=== PATIENT | female | born 2000 | race Caucasian/White ===

== ENCOUNTER → 2022-08-10 08:16 | Outpatient (BNVA) | payer OTHER, SELFPAY | PROVIDERS: PCP Internal Medicine; Visit Provider Nurse Practitioner Family | DX: G43.009 Migraine without aura, not intractable, without status migrainosus (principal); G47.9 Sleep disorder, unspecified | CPT/HCPCS: 99202 ==

== ENCOUNTER 2023-03-09 13:19 | Outpatient (AMB) | payer OTHER, SELFPAY ==
--- NOTE | 2023-03-09 13:41 | MHC.OFFVIS ---
Intake Vital Signs 03/09/23 13:44 Height 4 ft 10 in Weight 117 lb BMI 24.5 Intake Visit Reasons: f/u appt for Migraines-Confirmed Intake Note: Patient presents for follow up migraines Allergies amoxicillin Allergy (Unknown, Verified 03/09/23 13:45) Unknown Penicillins Allergy (Unknown, Verified 03/09/23 13:45) Unknown Medication List - Last Reconciled 03/09/23 by ASIM Byrd-e.estradiol-iron 1 mg-20 mcg (24)/75 mg (4) (Tracy 24 Fe) 1 tab PO DAILY ondansetron HCl 4 mg PO Q8H PRN riboflavin (vitamin B2) 400 mg PO DAILY 30 days sumatriptan succinate 50 - 100 mg orally at onset of headache, may repeat in 2 hrs PRN; max 2 tabs per day or 4 tabs/week (may take with Ibuprofen/Naproxen) 30 days sumatriptan succinate 6 mg (0.5 mL) subcut ONCE PRN 30 days ubrogepant (Ubrelvy) 50 - 100 mg (0.5 - 1 x 100 mg) PO ONCE PRN 30 days HPI HPI Comments History of Present Illness Details 22-yr-old female presents for f/u visit. Pt endorses the following interval medical history changes: She had Covid-19 a few weeks ago, which was mild self-limited. She is having less migraine attacks, but when she has an attack it is more severe. Last night, had to leave work d/t a migraine. She did not receive Ajovy or Riboflavin. The Sumatriptan tabs did not help. She did try the Sumatriptan inj- dd not see any real effect, but doing the inj did make her quite anxious. Ubrelvy and Zofran are still usually helpful. Baseline headache characteristics: Severe, Throbbing, aching, pulsating headache, starts above right eye moves over the left side of head and into the right neck (Rarely left sided) a/w Blurry vision, Photophobia, phonophobia, osmophobia, allodynia, nausea, sometimes vomiting, not right in space dizziness/weakness, tiredness, Bilateral fingertip tingling. Postdrome a/w Sometimes blurry vision. Sometimes has more energy. Usually upon awakening or may wake her up. Duration 2 hrs-5hrs- rarely 1-2 days. Current number of typical migraine days per month: 2 per week Average painfulness of these migraines: Mod to Severe Current number of non-migraine headache days per month: None Average painfulness of these headaches: n/a Current number of days of acute medication use per month: 2 x's per week Previous number of migraine days per month prior to starting current preventive tx: 2-3 x's per week PFSH Medical History (Updated 03/09/23 @ 14:43 by ASIM Bydr) COVID-19 Anxiety Depression Family History Father Hypercholesteremia Hypertension Maternal Grandfather Diabetes Skin cancer Family/Other Breast cancer Mother Asthma Arthritis Brother Hypertension Social History Alcohol intake: current Alcohol intake frequency: a few times a month Patient Tobacco Use Status: Never used Tobacco Physical Exam Vital Signs: BMI result Body Mass Index 24.5 Const General: cooperative and no acute distress Orientation/consciousness: patient oriented x3 Resp Effort & Inspection: normal respiratory effort and able to speak in complete sentences Neuro General: patient oriented x3 Cranial nerves: Yes CN's II-XII intact bilaterally Cognition (Neuro): normal cognition Psych Appearance: grossly normal Mental Status: mental status grossly normal Speech and movement: Normal speech and movement present Affect: normal affect Attitude: cooperative Assessment & Plan Assessment & Plan (1) Migraine without aura: Code(s): G43.009 - Migraine without aura, not intractable, without status migrainosus (2) Sleep difficulties: Code(s): G47.9 - Sleep disorder, unspecified (3) Nausea: Code(s): R11.0 - Nausea Plan For overall headache management: Continue to optimize good self-care, including but not limited to maintaining a healthy diet, adequate fluid intake, adequate sleep, and engaging in regular physical activity. Track headaches. Pt may benefit from reading Say Alfred to Insomnia by Dr Isaias Adams or similar CBTi resources. ? For acute headache treatment: Continue Ubrelvy 100mg at onset of migraine, may repeat in 2 hrs (max 200mg/day). May adjunct w/ Sumatriptan and/or Ibuporfen/Naproxen. Stop Sumatriptan 100mg tab- ineffective. Stop Sumatriptan 6mg sc- ineffective. Continue Zofran 4-8mg prn. Previous acute migraine medication trials: [id number]- worked but lost efficacy. Sumatriptan 100mg tab- ineffective. Sumatriptan 6mg sc- ineffective.Rizatriptan 10mg- stopped working. Zolmitriptan- ineffective. Naratriptan- not effective. Has not tried Nurtec. Acute migraine medication contraindications: None at this time. ? For headache prevention medication: Discussed that preventative medications should be taken routinely as prescribed for best effect, it may take several weeks for full effect to take effect. Will reorder Riboflavin 400mg qam Will f/u on order for Ajovy 225mg sc q month. Reviewed potential adverse effects of Ajovy/Emgality, including but not limited to injection site reactions. Previous migraine prevention medication trials: Depakote- ineffective. Topiramate- ineffective. Propranolol- ineffective. Amitriptyline- ineffective. Magensium- ineffective. Migraine prevention medication contraindications: None at this time. ? Pt to follow-up in 4 months or sooner prn. Medications: New fremanezumab-vfrm (Ajovy) administer 225mg sc q month 225 mg (1.5 mL) subcut ONCE 30 days 1.5 mL 6RF Changed From ondansetron HCl 4 mg PO Q8H PRN nausea/vomiting To ondansetron HCl 4 - 8 mg (1 - 2 x 4 mg) PO Q6-8H 30 days PRN 30 tabs 3RF nausea/vomiting Refilled riboflavin (vitamin B2) 400 mg PO DAILY 30 days 30 tabs 6RF Discontinued sumatriptan succinate Discontinued Reason: Doctor's Order (0.5 - 1 x 100 mg) 50 - 100 mg orally at onset of headache, may repeat in 2 hrs PRN; max 2 tabs per day or 4 tabs/week (may take with Ibuprofen/Naproxen) 30 days 12 tabs 6RF migraine headache sumatriptan succinate may repeat in 1 hr Discontinued Reason: Doctor's Order 6 mg (0.5 mL) subcut ONCE 30 days PRN 4 mL 0RF migraine headache Coding Level of Care Code Est Pt Level 4 (59049) Diagnoses Migraine without aura G43.009 Sleep difficulties G47.9 Nausea R11.0
[2023-03-09 13:44] VITALS: BMI 24.5
== END 2023-03-09 14:21 | disposition home or self-care (01) ==
PROVIDERS: PCP Internal Medicine; Visit Provider Nurse Practitioner Family
DX: G43.009 Migraine without aura, not intractable, without status migrainosus (principal); G47.9 Sleep disorder, unspecified; R11.0 Nausea
CPT/HCPCS: 99214

== ENCOUNTER → 2023-03-09 13:19 | Outpatient (BNVA) | payer OTHER, SELFPAY | PROVIDERS: PCP Internal Medicine; Visit Provider Nurse Practitioner Family | DX: G43.009 Migraine without aura, not intractable, without status migrainosus (principal); G47.9 Sleep disorder, unspecified; R11.0 Nausea | CPT/HCPCS: 99212 ==

== ENCOUNTER 2023-07-06 10:41 | Outpatient (AMB) | payer OTHER, SELFPAY ==
--- NOTE | 2023-07-06 11:09 | MHC.OFFVIS ---
Vital Signs 07/06/23 11:10 Height 4 ft 10 in Weight 120 lb BMI 25.1 BP 98/72 Blood Pressure Location Rt brachial Position Sitting Intake Visit Reasons: 4 mnts-LVM Intake Note: Patient following up. Patient still having issues with falling asleep,staying asleep is no issue. Allergies amoxicillin Allergy (Unknown, Verified 07/06/23 11:11) Unknown Penicillins Allergy (Unknown, Verified 07/06/23 11:11) Unknown Medication List - Last Reconciled 07/06/23 by ASIM Byrd fremanezumab-vfrm (Ajovy) 225 mg (1.5 mL) subcut ONCE 30 days norethindrone-e.estradiol-iron 1 mg-20 mcg (24)/75 mg (4) (Tracy 24 Fe) 1 tab PO DAILY ondansetron HCl 4 - 8 mg (1 - 2 x 4 mg) PO Q6-8H PRN 30 days riboflavin (vitamin B2) 400 mg PO DAILY 30 days ubrogepant (Ubrelvy) 50 - 100 mg (0.5 - 1 x 100 mg) PO ONCE PRN 30 days HPI Comments Details: 22-yr-old female presents for f/u visit. Pt denies any significant interval medical changes. Pt continues to have sleep initiation difficulties, but once she falls asleep she can stay asleep. 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 She notes before working 2nd shift- she would have sleep onset difficulties. She has decreased her caffeine use- was taking at 2pm for 2nd shift work. She is walking daily w/ her dog. Once she falls asleep, she sleeps for almost 9hrs, wakes up tired, and groggy/grumpy- needs a while to ease into her day. Since she started Ajovy, she has had a decrease in monthly migraine attacks from 2 attacks per week to 2 attacks per month. The duration of the attack is the same. However, she has not had the Ubrelvy- was pending insurance auth. Ubrelvy was previously helpful. Ubrelvy was just approved. Zofran helps for the nausea. Baseline headache characteristics: Severe, Throbbing, aching, pulsating headache, starts above right eye moves over the left side of head and into the right neck (Rarely left sided) a/w Blurry vision, Photophobia, phonophobia, osmophobia, allodynia, nausea, sometimes vomiting, not right in space dizziness/weakness, tiredness, Bilateral fingertip tingling. Postdrome a/w Sometimes blurry vision. Sometimes has more energy. Usually upon awakening or may wake her up. Duration 2 hrs-5hrs- rarely 1-2 days. PFSH Medical History (Updated 07/06/23 @ 11:49 by ASIM Byrd) COVID-19 Anxiety Depression Family History Father Hypercholesteremia Hypertension Maternal Grandfather Diabetes Skin cancer Family/Other Breast cancer Mother Asthma Arthritis Brother Hypertension Social History Alcohol intake: current Alcohol intake frequency: a few times a month Patient Tobacco Use Status: Never used Tobacco Physical Exam Vital Signs: Last Vital Signs BP 98/72 07/06/23 11:10 BMI result Body Mass Index 25.1 Const General: cooperative and no acute distress Orientation/consciousness: patient oriented x3 Resp Effort & Inspection: normal respiratory effort and able to speak in complete sentences Neuro General: patient oriented x3 Cranial nerves: Yes CN's II-XII intact bilaterally Cognition (Neuro): normal cognition Psych Appearance: grossly normal Mental Status: mental status grossly normal Speech and movement: Normal speech and movement present Affect: normal affect Attitude: cooperative Assessment & Plan Assessment & Plan (1) Migraine without aura: Code(s): G43.009 - Migraine without aura, not intractable, without status migrainosus Category: Medical (2) Sleep difficulties: Code(s): G47.9 - Sleep disorder, unspecified Category: Medical (3) Snoring: Code(s): R06.83 - Snoring Category: Medical (4) Hypersomnia: Code(s): G47.10 - Hypersomnia, unspecified Category: Medical Plan For sleep: Try Melatonin 3-6mg q evening. Discussed tips to optimize sleep hygiene- avoid using phone in bed, do not go to bed until tired. Pt may benefit from reading/listening to CBTi resources. HST to assess for sleep apnea. Futire considerations- PSG/MSLT- pt will monitor for cataplexy s/s- she was not sure if she had these or not. For overall headache management: Continue to optimize good self-care, including but not limited to maintaining a healthy diet, adequate fluid intake, adequate sleep, and engaging in regular physical activity. Track headaches. ? For acute headache treatment: Resume Ubrelvy 100mg at onset of migraine, may repeat in 2 hrs (max 200mg/day). May adjunct w/ Sumatriptan and/or Ibuporfen/Naproxen. Continue Zofran 4-8mg prn. Previous acute migraine medication trials: [id number]- worked but lost efficacy. Sumatriptan 100mg tab- ineffective. Sumatriptan 6mg sc- ineffective.Rizatriptan 10mg- stopped working. Zolmitriptan- ineffective. Naratriptan- not effective. Has not tried Nurtec. Acute migraine medication contraindications: None at this time. ? For headache prevention medication: Continue Riboflavin 400mg qam Continue Ajovy 225mg sc q month. Reviewed potential adverse effects of Ajovy/Emgality, including but not limited to injection site reactions. Previous migraine prevention medication trials: Depakote- ineffective. Topiramate- ineffective. Propranolol- ineffective. Amitriptyline- ineffective. Magensium- ineffective. Migraine prevention medication contraindications: None at this time. ? Pt to follow-up in 6 months or sooner prn. Orders: Orders RT home sleep study Today G47.10 - Hypersomnia, unspecified, G47.9 - Sleep disorder, unspecified, R06.83 - Snoring Medications: New melatonin in the evening 3 - 6 mg (1 - 2 x 3 mg) PO DAILY 30 days PRN 60 tabs 3RF sleep Coding Level of Care Code Est Pt Level 4 (91389) Diagnoses Migraine without aura G43.009 Sleep difficulties G47.9 Snoring R06.83 Hypersomnia G47.10
[2023-07-06 11:10] VITALS: BP 98/72; BMI 25.1
== END 2023-07-06 11:58 | disposition home or self-care (01) ==
PROVIDERS: PCP Internal Medicine; Visit Provider Nurse Practitioner Family
DX: G43.009 Migraine without aura, not intractable, without status migrainosus (principal); G47.9 Sleep disorder, unspecified; R06.83 Snoring; G47.10 Hypersomnia, unspecified
CPT/HCPCS: 99214

== ENCOUNTER → 2023-07-06 10:41 | Outpatient (BNVA) | payer OTHER, SELFPAY | PROVIDERS: PCP Internal Medicine; Visit Provider Nurse Practitioner Family | DX: G43.009 Migraine without aura, not intractable, without status migrainosus (principal); G47.9 Sleep disorder, unspecified; R06.83 Snoring; G47.10 Hypersomnia, unspecified | CPT/HCPCS: 99212 ==

== ENCOUNTER 2024-01-25 14:36 | Outpatient (AMB) | payer OTHER, SELFPAY ==
[2024-01-25 14:41] VITALS: BP 120/72; PULSE 88; O2SAT 96; BMI 25.7
--- NOTE | 2024-01-25 14:41 | MHC.OFFVIS ---
Vital Signs 01/25/24 14:41 Height 4 ft 10 in Weight 123 lb BMI 25.7 BP 120/72 Blood Pressure Location Rt brachial Position Sitting Pulse 88 Pulse Source Pulse Oximeter Pulse Oximetry (%) 96 Oxygen Delivery Method Room Air Intake Visit Reasons: 7 month F/U [employer] Required: No Accompanied by: Self / Same As Patient Allergies amoxicillin Allergy (Unknown, Verified 01/25/24 14:43) Unknown Penicillins Allergy (Unknown, Verified 01/25/24 14:43) Unknown Medication List - Last Reconciled 01/25/24 by ASIM Byrd fremanezumab-vfrm (Ajovy) 225 mg (1.5 mL) subcut ONCE 30 days melatonin 3 - 6 mg (1 - 2 x 3 mg) PO DAILY PRN 30 days norethindrone-e.estradiol-iron 1 mg-20 mcg (24)/75 mg (4) (Tracy 24 Fe) 1 tab PO DAILY ondansetron HCl 4 - 8 mg (1 - 2 x 4 mg) PO Q6-8H PRN 30 days riboflavin (vitamin B2) 400 mg PO DAILY 30 days ubrogepant (Ubrelvy) 50 - 100 mg (0.5 - 1 x 100 mg) PO ONCE PRN 30 days HPI Comments Details: 22-yr-old female presents for f/u visit. Pt denies any significant interval medical changes. She has not had HST yet, had to cancel. Lately has been able to fall asleep ok, but is still prone to sleep initiation difficulties, but once she falls asleep she can stay asleep. She is now going to better proximally at 01:00. Once she falls asleep, she sleeps for almost 9hrs, has snoring, wakes up tired, and groggy/grumpy- needs a while to ease into her day. Tried melatonin- did not see much effect. She is again working 2nd shift (3pm-11pm/11:30-11:45pm)- though she preferred working day shift, the day shift position aware not a good fit for her, so she went back to her previous job. She continues to take decreased her caffeine use- was taking at 2pm for 2nd shift work. She is walking daily w/ her 90 lb pit bull. Pt reports she has had 3-4 migraine attacks in the last 3-4 weeks. The duration of the attack is the same, however the intensity seems more intense and come without warning. Though on questioning, she does endorse a prodrome of neck tightness. Ubrelvy does help. Zofran helps for the nausea. Baseline headache characteristics: Severe, Throbbing, aching, pulsating headache, starts above right eye moves over the left side of head and into the right neck (Rarely left sided) a/w Blurry vision, Photophobia, phonophobia, osmophobia, allodynia, nausea, sometimes vomiting, not right in space dizziness/weakness, tiredness, Bilateral fingertip tingling. Postdrome a/w Sometimes blurry vision. Sometimes has more energy. Usually upon awakening or may wake her up. Duration 2 hrs-5hrs- rarely 1-2 days. [facility] Medical History (Updated 07/06/23 @ 11:49 by ASIM Byrd) COVID-19 Anxiety Depression Family History Father Hypercholesteremia Hypertension Maternal Grandfather Diabetes Skin cancer Family/Other Breast cancer Mother Asthma Arthritis Brother Hypertension Social History Alcohol intake: current Alcohol intake frequency: a few times a month Patient Tobacco Use Status: Never used Tobacco Physical Exam Vital Signs: Last Vital Signs Pulse 88 01/25/24 14:41 BP 120/72 01/25/24 14:41 Pulse Ox 96 01/25/24 14:41 Oxygen Delivery Method Room Air 01/25/24 14:41 BMI result Body Mass Index 25.7 Const General: cooperative and no acute distress Orientation/consciousness: patient oriented x3 Resp Effort & Inspection: normal respiratory effort and able to speak in complete sentences Neuro General: patient oriented x3 Cranial nerves: Yes CN's II-XII intact bilaterally Cognition (Neuro): normal cognition Psych Appearance: grossly normal Mental Status: mental status grossly normal Speech and movement: Normal speech and movement present Affect: normal affect Attitude: cooperative Assessment & Plan Assessment & Plan (1) Migraine without aura: Code(s): G43.009 - Migraine without aura, not intractable, without status migrainosus Category: Medical (2) Sleep difficulties: Code(s): G47.9 - Sleep disorder, unspecified Category: Medical (3) Snoring: Code(s): R06.83 - Snoring Category: Medical (4) Hypersomnia: Code(s): G47.10 - Hypersomnia, unspecified Category: Medical Plan For sleep: Hold melatonin IR 3-6 mg q.h.s. order- was ineffective. Try Melatonin ER 3-6mg at 9pm- in hopes it becomes effective around 1am- pt's bedtime. Reviewed sleep hygiene considerations for 2nd shift work schedule. Patient is again advised to undergo HST to assess for sleep apnea. Future considerations- PSG/MSLT- pt will monitor for cataplexy s/s- she was not sure if she had these or not. Her mother does have symptoms of excessive daytime sleepiness. Her father has insomnia, may not sleep for 3 days and then sleep for 3 days. For overall headache management: Continue to optimize good self-care, including but not limited to maintaining a healthy diet, adequate fluid intake, adequate sleep, and engaging in regular physical activity. Track headaches. ? For acute headache treatment: Continue Ubrelvy 100mg at onset of migraine, may repeat in 2 hrs (max 200mg/day). Try taking at initial prodrome symptom of neck tightness, in hopes this is more effective. May adjunct w/ Sumatriptan and/or Ibuporfen/Naproxen. Continue Zofran 4-8mg prn. Previous acute migraine medication trials: [id number]- worked but lost efficacy. Sumatriptan 100mg tab- ineffective. Sumatriptan 6mg sc- ineffective.Rizatriptan 10mg- stopped working. Zolmitriptan- ineffective. Naratriptan- not effective. Has not tried Nurtec. Acute migraine medication contraindications: None at this time. ? For headache prevention medication: Continue Riboflavin 400mg qam Continue Ajovy 225mg sc q month. Reviewed potential adverse effects of Ajovy/Emgality, including but not limited to injection site reactions. Previous migraine prevention medication trials: Depakote- ineffective. Topiramate- ineffective. Propranolol- ineffective. Amitriptyline- ineffective. Magnesium- ineffective. Migraine prevention medication contraindications: None at this time. ? Will follow-up upon review of above and patient to follow-up in clinic in 6 months or sooner prn. Orders: Orders RT home sleep study Today G47.10 - Hypersomnia, unspecified, G47.9 - Sleep disorder, unspecified, R06.83 - Snoring Medications: New melatonin ER at 9pm 3 - 6 mg (1 - 2 x 3 mg) PO DAILY 30 days 60 tabs 6RF Refilled ondansetron HCl 4 - 8 mg (1 - 2 x 4 mg) PO Q6-8H 30 days PRN 30 tabs 3RF nausea/vomiting fremanezumab-vfrm (Ajovy) administer 225mg sc q month 225 mg (1.5 mL) subcut ONCE 30 days 1.5 mL 6RF riboflavin (vitamin B2) 400 mg PO DAILY 30 days 30 tabs 6RF Discontinued melatonin in the evening Discontinued Reason: Doctor's Order 3 - 6 mg (1 - 2 x 3 mg) PO DAILY 30 days PRN 60 tabs 3RF sleep Coding Level of Care Code Est Pt Level 4 (98160) Diagnoses Migraine without aura G43.009 Sleep difficulties G47.9 Snoring R06.83 Hypersomnia G47.10 [place] Sleepiness Scale Questions Sitting and reading: moderate chance of dozing Watching TV: slight chance of dozing Sitting inactive in a theater, movie etc.: slight chance of dozing As a passenger in a car for an hour without break: high chance of dozing Lying down in the afternoon when circumstances permit: moderate chance of dozing Sitting and talking to someone: would never doze Sitting quietly after lunch without alcohol: slight chance of dozing In a car, while stopped for a few minutes in the traffic: would never doze ESS < 10: normal, ESS > 12: pathologic: 10
== END 2024-01-25 15:49 | disposition home or self-care (01) ==
PROVIDERS: PCP Internal Medicine; Visit Provider Nurse Practitioner Family
DX: G43.009 Migraine without aura, not intractable, without status migrainosus (principal); G47.9 Sleep disorder, unspecified; R06.83 Snoring; G47.10 Hypersomnia, unspecified
CPT/HCPCS: 99214

== ENCOUNTER → 2024-01-25 14:36 | Outpatient (BNVA) | payer OTHER, SELFPAY | PROVIDERS: PCP Internal Medicine; Visit Provider Nurse Practitioner Family | DX: G43.009 Migraine without aura, not intractable, without status migrainosus (principal); G47.9 Sleep disorder, unspecified; G47.10 Hypersomnia, unspecified; R06.83 Snoring | CPT/HCPCS: 99212 ==

== ENCOUNTER 2024-07-28 11:12 | Outpatient (AMB) | payer OTHER, SELFPAY ==
[2024-07-28 11:32] VITALS: BP 110/84; BMI 26.5
--- NOTE | 2024-07-28 11:32 | A.OFFVIS_ITS ---
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: No Accompanied by: Self / Same As Patient Allergies amoxicillin Allergy (Unknown, Verified 07/28/24 11:54) Unknown Penicillins Allergy (Unknown, Verified 07/28/24 11:54) Unknown Medication List - Last Reconciled 07/28/24 by ASIM Byrd fremanezumab-vfrm (Ajovy) 675 mg (4.5 mL) subcut [id number] 90 days melatonin ER 3 - 6 mg (1 - 2 x 3 mg) PO DAILY 30 days norethindrone-e.estradiol-iron 1 mg-20 mcg (24)/75 mg (4) (Tracy 24 Fe) 1 tab PO DAILY ondansetron HCl 4 - 8 mg (1 - 2 x 4 mg) PO Q6-8H PRN 30 days riboflavin (vitamin B2) 400 mg PO DAILY 30 days ubrogepant (Ubrelvy) 50 - 100 mg (0.5 - 1 x 100 mg) PO ONCE PRN 30 days HPI Comments Details: 23-yr-old female presents for f/u visit for migraine Pt denies any significant interval medical changes. She has not had HST yet, had to cancel due to an insurance issue., however she continues to have sleep difficulties daytime sleepiness- so would like to do the home sleep study possible. Continues to have snoring, wakes up tired, and groggy/grumpy- needs a while to ease into her day. Tried melatonin- did not see much effect. Pt reports she has weeks for she has no migraines, and then we will have 3-4 migraine attacks in a week, and this is associated with her Ajovy injection cycle. Ubrelvy does help. Zofran helps for the nausea. Baseline headache characteristics: Severe, Throbbing, aching, pulsating headache, starts above right eye moves over the left side of head and into the right neck (Rarely left sided) a/w Blurry vision, Photophobia, phonophobia, osmophobia, allodynia, nausea, sometimes vomiting, not right in space dizziness/weakness, tiredness, Bilateral fingertip tingling. Postdrome a/w Sometimes blurry vision. Sometimes has more energy. Usually upon awakening or may wake her up. Duration 2 hrs-5hrs- rarely 1-2 days. COUNTS INCLUDE 234 BEDS AT THE [facility] Medical History (Updated 07/28/24 @ 12:44 by ASIM yBrd) COVID-19 Anxiety Depression Family History Father Hypercholesteremia Hypertension Maternal Grandfather Diabetes Skin cancer Family/Other Breast cancer Mother Asthma Arthritis Brother Hypertension Social History Alcohol intake: current Alcohol intake frequency: a few times a month Patient Tobacco Use Status: Never used Tobacco Physical Exam Vital Signs: Last Vital Signs BP 110/84 07/28/24 11:32 BMI result Body Mass Index 26.5 Const General: cooperative and no acute distress Orientation/consciousness: patient oriented x3 Resp Effort & Inspection: normal respiratory effort and able to speak in complete sentences Neuro General: patient oriented x3 Cranial nerves: Yes CN's II-XII intact bilaterally Cognition (Neuro): normal cognition Psych Appearance: grossly normal Mental Status: mental status grossly normal Speech and movement: Normal speech and movement present Affect: normal affect Attitude: cooperative Assessment & Plan Assessment & Plan (1) Hypersomnia: Comment: [place] sleepiness scale greater than 10 Code(s): G47.10 - Hypersomnia, unspecified Category: Medical (2) Snoring: Code(s): R06.83 - Snoring Category: Medical (3) Sleep difficulties: Code(s): G47.9 - Sleep disorder, unspecified Category: Medical (4) Migraine without aura: Code(s): G43.009 - Migraine without aura, not intractable, without status migrainosus Category: Medical Qualifiers: Status migrainosus presence: without status migrainosus Intractability: not intractable Qualified Code(s): G43.009 - Migraine without aura, not intractable, without status migrainosus Plan For sleep: Hold melatonin- ineffective Patient is again advised to undergo HST to assess for sleep apnea. Future considerations- PSG/MSLT- pt will monitor for cataplexy s/s- she was not sure if she had these or not. Her mother does have symptoms of excessive d aytime sleepiness. Her father has insomnia, may not sleep for 3 days and then sleep for 3 days. For overall headache management: Continue to optimize good self-care, including but not limited to maintaining a healthy diet, adequate fluid intake, adequate sleep, and engaging in regular physical activity. Track headaches. ? For acute headache treatment: Continue Ubrelvy 100mg at onset of migraine, may repeat in 2 hrs (max 200mg/day). Try taking at initial prodrome symptom of neck tightness, in hopes this is more effective. May adjunct w/ Sumatriptan and/or Ibuporfen/Naproxen. Continue Zofran 4-8mg prn. Previous acute migraine medication trials: [id number]- worked but lost efficacy. Sumatriptan 100mg tab- ineffective. Sumatriptan 6mg sc- ineffective.Rizatriptan 10mg- stopped working. Zolmitriptan- ineffective. Naratriptan- not effective. Has not tried Nurtec. Acute migraine medication contraindications: None at this time. ? For headache prevention medication: Continue Riboflavin 400mg qam Continue Ajovy, as patient has good clinical effect from use. However as she has wearing off at the end of the injection cycle, we will adjust Ajovy from 225 mg subcu monthly to 675 mg subQ every 90 days. Patient verbalizes understanding and is in agreement with plan. Reviewed potential adverse effects of Ajovy/Emgality, including but not limited to injection site reactions. Previous migraine prevention medication trials: Depakote- ineffective. Topiramate- ineffective. Propranolol- ineffective. Amitriptyline- ineffective. Magnesium- ineffective. Migraine prevention medication contraindications: None at this time. ? Will follow-up upon review of above and patient to follow-up in clinic in 6 months or sooner prn. Orders: Orders RT home sleep study Today G47.10 - Hypersomnia, unspecified, G47.9 - Sleep disorder, unspecified, R06.83 - Snoring Medications: Changed From fremanezumab-vfrm (Ajovy) administer 225mg sc q month 225 mg (1.5 mL) subcut ONCE 30 days 1.5 mL 6RF To fremanezumab-vfrm (Ajovy) administer 675mg sc q month- start w/ 675 mg (4.5 mL) subcut [id number] 90 days 4.5 mL 3RF Refilled ubrogepant (Ubrelvy) take at onset of migraine, may repeat in 2hrs (may take w/ Ibuprofen) 50 - 100 mg (0.5 - 1 x 100 mg) PO ONCE 30 days PRN 16 tabs 6RF migraine headache ondansetron HCl 4 - 8 mg (1 - 2 x 4 mg) PO Q6-8H 30 days PRN 30 tabs 3RF nausea/vomiting Discontinued melatonin ER at 9pm Discontinued Reason: Doctor's Order 3 - 6 mg (1 - 2 x 3 mg) PO DAILY 30 days 60 tabs 6RF Coding Level of Care Code Est Pt Level 4 (20940) Diagnoses Hypersomnia G47.10 Snoring R06.83 Sleep difficulties G47.9 Migraine without aura and without status migrainosus, not intractable G43.009 Status migrainosus presence: without status migrainosus Intractability: not intractable
== END 2024-07-28 12:14 | disposition home or self-care (01) ==
LOC: HO.HSMS 11:13
PROVIDERS: PCP Internal Medicine; Visit Provider Nurse Practitioner Family
DX: G47.10 Hypersomnia, unspecified (principal); R06.83 Snoring; G47.9 Sleep disorder, unspecified; G43.009 Migraine without aura, not intractable, without status migrainosus
CPT/HCPCS: 99214

== ENCOUNTER → 2024-07-28 11:12 | Outpatient (BNVA) | payer OTHER, SELFPAY | PROVIDERS: PCP Internal Medicine; Visit Provider Nurse Practitioner Family ==

== ENCOUNTER 2025-01-30 10:17 | Outpatient (AMB) | payer OTHER, SELFPAY ==
[2025-01-30 11:07] VITALS: BP 120/82; BMI 25.9
--- NOTE | 2025-01-30 11:07 | A.OFFVIS_ITS ---
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 Required: No Accompanied by: Self / Same As Patient Allergies amoxicillin Allergy (Unknown, Verified 01/30/25 11:07) Unknown Penicillins Allergy (Unknown, Verified 01/30/25 11:07) Unknown Medication List - Last Reconciled 01/30/25 by ASIM Byrd fremanezumab-vfrm (Ajovy) 675 mg (4.5 mL) subcut [id number] 90 days norethindrone-e.estradiol-iron 1 mg-20 mcg (24)/75 mg (4) (Tracy 24 Fe) 1 tab PO DAILY ondansetron HCl 4 - 8 mg (1 - 2 x 4 mg) PO Q6-8H PRN 30 days riboflavin (vitamin B2) 400 mg PO DAILY 30 days ubrogepant (Ubrelvy) 50 - 100 mg (0.5 - 1 x 100 mg) PO ONCE PRN 30 days HPI Comments Details: 23-yr-old female presents for f/u visit for migraine Pt denies any significant interval medical changes. She has not had HST yet, did not hear from anyone to schedule. She states her sleep is a little bit better in the winter, however she continues to have sleep difficulties- so would like to do the home sleep study possible. Continues to have snoring, wakes up tired, morning grogginess/grumpiness- needs a while to ease into her day, and daytime sleepiness Tried melatonin- did not see much effect. Pt reports she has weeks for she has no migraines, and then we will have 3-4 migraine attacks in a week. This is still greater than 50% reduction in monthly migraine days since starting Ajovy. She did not adjust the Ajovy to the 675mg every 3 months protocol- was nervous to do this- was unsusre what she would do if the headaches increased. Ubrelvy does help. Zofran helps for the nausea. Baseline headache characteristics: Severe, Throbbing, aching, pulsating headache, starts above right eye moves over the left side of head and into the right neck (Rarely left sided) a/w Blurry vision, Photophobia, phonophobia, osmophobia, allodynia, nausea, sometimes vomiting, not right in space dizziness/weakness, tiredness, Bilateral fingertip tingling. Postdrome a/w Sometimes blurry vision. Sometimes has more energy. Usually upon awakening or may wake her up. Duration 2 hrs-5hrs- rarely 1-2 days. [facility] Medical History (Updated 07/28/24 @ 12:44 by ASIM Bryd) COVID-19 Anxiety Depression Family History Father Hypercholesteremia Hypertension Maternal Grandfather Diabetes Skin cancer Family/Other Breast cancer Mother Asthma Arthritis Brother Hypertension Social History Alcohol intake: current Alcohol intake frequency: a few times a month Patient Tobacco Use Status: Never used Tobacco Physical Exam Vital Signs: Last Vital Signs BP 120/82 01/30/25 11:07 BMI result Body Mass Index 25.9 Const General: cooperative and no acute distress Orientation/consciousness: patient oriented x3 Resp Effort & Inspection: normal respiratory effort and able to speak in complete sentences Neuro General: patient oriented x3 Cranial nerves: Yes CN's II-XII intact bilaterally Cognition (Neuro): normal cognition Psych Appearance: grossly normal Mental Status: mental status grossly normal Speech and movement: Normal speech and movement present Affect: normal affect Attitude: cooperative Assessment & Plan Assessment & Plan (1) Hypersomnia: Comment: [place] sleepiness scale greater than 10 Code(s): G47.10 - Hypersomnia, unspecified Category: Medical (2) Snoring: Code(s): R06.83 - Snoring Category: Medical (3) Sleep difficulties: Code(s): G47.9 - Sleep disorder, unspecified Category: Medical (4) Migraine without aura: Code(s): G43.009 - Migraine without aura, not intractable, without status migrainosus Category: Medical Qualifiers: Status migrainosus presence: without status migrainosus Intractability: not intractable Qualified Code(s): G43.009 - Migraine without aura, not intractable, without status migrainosus Plan For sleep: Hold melatonin- ineffective We will follow-up on the order for HST to assess for sleep apnea. Future considerations- PSG/MSLT- pt will monitor for cataplexy s/s- she was not sure if she had these or not. Her mother does have symptoms of excessive daytime sleepiness. Her father has insomnia, may not sleep for 3 days and then sleep for 3 days. For overall headache management: Continue to optimize good self-care, including but not limited to maintaining a healthy diet, adequate fluid intake, adequate sleep, and engaging in regular physical activity. Track headaches. ? For acute headache treatment: Continue Ubrelvy 100mg at onset of migraine, may repeat in 2 hrs (max 200 mg/day). Try taking at initial prodrome symptom of neck tightness, in hopes this is more effective. May adjunct w/ Sumatriptan and/or Ibuprofen or Naproxen. Continue Zofran 4-8mg prn. Previous acute migraine medication trials: [id number]- worked but lost efficacy. Sumatriptan 100mg tab- ineffective. Sumatriptan 6mg sc- ineffective. Rizatriptan 10mg- stopped working. Zolmitriptan- ineffective. Naratriptan- not effective. Has not tried Nurtec. Acute migraine medication contraindications: None at this time. ? For headache prevention medication: Continue Riboflavin 400mg daily in morning Continue Ajovy, as patient has good clinical effect from use. However if she continues to have wearing off at the end of the injection cycle, she can adjust Ajovy from 225 mg subcu monthly to 675 mg subQ every 90 days. Patient verbalizes understanding and is in agreement with plan. Reviewed potential adverse effects of Ajovy/Emgality, including but not limited to injection site reactions. Previous migraine prevention medication trials: Depakote- ineffective. Topiramate- ineffective. Propranolol- ineffective. Amitriptyline- ineffective. Magnesium- ineffective. Migraine prevention medication contraindications: None at this time. Future considerations: Qulipta ? Will follow-up upon review of above and patient to follow-up in clinic in 6 months or sooner prn. Medications: Changed From fremanezumab-vfrm (Ajovy) administer 675mg sc q month- start w/ 675 mg (4.5 mL) subcut [id number] 90 days 4.5 mL 3RF To fremanezumab-vfrm (Ajovy) administer 675mg sc q month- 675 mg (4.5 mL) subcut [id number] 4.5 mL 4RF 90 days Refilled ubrogepant (Ubrelvy) take at onset of migraine, may repeat in 2hrs (may take w/ Ibuprofen) 50 - 100 mg (0.5 - 1 x 100 mg) PO ONCE PRN 16 tabs 6RF migraine headache 30 days Coding Level of Care Code Est Pt Level 4 (18023) Diagnoses Hypersomnia G47.10 Snoring R06.83 Sleep difficulties G47.9 Migraine without aura and without status migrainosus, not intractable G43.009 Status migrainosus presence: without status migrainosus Intractability: not intractable
== END 2025-01-30 11:47 | disposition home or self-care (01) ==
LOC: HO.HSMS 10:18
PROVIDERS: PCP Internal Medicine; Visit Provider Nurse Practitioner Family
DX: G47.10 Hypersomnia, unspecified (principal); R06.83 Snoring; G47.9 Sleep disorder, unspecified; G43.009 Migraine without aura, not intractable, without status migrainosus
CPT/HCPCS: 99214